=== PATIENT | male | born 1940 | race Caucasian/White ===

== ENCOUNTER 2018-04-18 23:32 | Emergency (ER) | payer MEDICARE ==
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
== END 2018-04-19 01:01 | disposition home or self-care (01) ==
LOC: ER 23:32
DX: S61.412A Laceration without foreign body of left hand, initial encounter (principal); W26.0XXA Contact with knife, initial encounter; Y92.009 Unspecified place in unspecified non-institutional (private) residence as the place of occurrence of the external cause; I10 Essential (primary) hypertension
CPT/HCPCS: 12001; 99283

== ENCOUNTER 2018-04-29 15:34 | Emergency (ER) | payer MEDICARE ==
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
== END 2018-04-29 16:12 | disposition home or self-care (01) ==
LOC: ER 15:34
DX: Z48.02 Encounter for removal of sutures (principal)

== ENCOUNTER 2019-05-08 13:53 | Inpatient (IN) | payer MEDICARE ==
[2019-05-08] MEDS ORDERED: FUROSEMIDE IV 40MG/4ML VIAL IVP ONE (14:25)
--- NOTE | 2019-05-08 14:26 | Emergency Department Record ---
History of Present Illness - General Chief complaint: Edema Stated complaint: SWELLING ON FEET Time Seen by Provider: 05/08/19 14:08 Source: Patient, Family Mode of Arrival: Ambulatory Limitations: No limitations - History of Present Illness Initial comments: The patient is here due to worsening leg swelling L>R and now redness and pain to the L lower leg for 2 days. The patient has had GAMBLE but no CP, GRIFFITH, cough, or fever. He does have a hx of significant peripheral edema but that is worse now. MD Complaint: Extremity swelling Onset/Timin -: Week(s) Location: Left, Right, Ankle, Foot, Lower Leg History of Same: Yes Improves with: Nothing Worsens with: Nothing Associated Symptoms: Denies other symptoms - Related Data Allergies Allergy/AdvReac Type Severity Reaction Status Date / Time codeine Allergy Intermediate ALTERED Verified 05/08/19 14:07 MENTAL STATUS Influenza Virus Vaccines AdvReac Severe Temp >104, Verified 05/08/19 14:07 vomiting, diarrhea Travel Screening - Travel/Exposure Within Last 30 Days Have you traveled within the last 30 days?: No Review of Systems Constitutional: Denies: Chills, Fever Eyes: Denies: Eye discharge ENT: Denies: Congestion Respiratory: Denies: Cough, Dyspnea Cardiovascular: Reports: Dyspnea on exertion. Denies: Chest pain Endocrine: Reports: Fatigue Gastrointestinal: Denies: Nausea Genitourinary: Denies: Dysuria Musculoskeletal: Denies: Arthralgia Skin: Denies: Bruising Past Medical History - SOCIAL HISTORY Smoking Status: Never smoker Alcohol Use: None Drug Use: None - RESPIRATORY Hx Respiratory Disorders: No - CARDIOVASCULAR Hx Cardio Disorders: Yes Hx Edema: Yes Hx Hypertension: Yes - NEURO Hx Neuro Disorders: No - GI Hx GI Disorders: No - Hx Genitourinary Disorders: Yes Hx Prostate Problems: Yes ([place]) - ENDOCRINE Hx Endocrine Disorders: Yes Hx Diabetes: Yes - MUSCULOSKELETAL Hx Musculoskeletal Disorders: Yes - PSYCH Hx Psych Problems: No - HEMATOLOGY/ONCOLOGY Hx Hematology/Oncology Disorders: Yes Hx Cancer: Yes Hx Chemotherapy: No Hx Radiation Therapy: No Family Medical History Any Significant Family History?: Yes Hx Cancer: Father, Mother Physical Exam - General General Appearance: Alert, Oriented x3, Cooperative, No acute distress - Head Head exam: Atraumatic, Normocephalic - Eye Eye exam: Normal appearance - ENT Throat exam: Normal inspection. negative: Tonsillar erythema, Tonsillar exudate - Neck Neck exam: Normal inspection, Full ROM. negative: Tenderness - Respiratory Respiratory exam: Normal lung sounds bilaterally. negative: Respiratory distress - Cardiovascular Cardiovascular Exam: Regular rate, Normal rhythm, Normal heart sounds - GI/Abdominal GI/Abdominal exam: Soft, Normal bowel sounds. negative: Tenderness - Extremities Extremities exam: Pedal edema (3+ L leg and 2+ R leg. There is erythema, tenderness and warmth to the L lower leg.). negative: Normal inspection - Neurological Neurological exam: Alert. negative: Motor sensory deficit Course Vital Signs 05/08/19 14:01 Temperature 98.2 F Pulse Rate 73 Respiratory 22 Rate Blood Pressure 164/73 Pulse Ox 93 L - Reevaluation(s) Reevaluation #1: The patient is doing well at this time and is resting comfortably. He has already urinated twice from the Lasix. I do feel he will need inpatient treatment for the L leg cellulitis and did recommend admission and the patient and family agreed. I also did discuss the case with Dr. Heath and he does accept the admission. 05/08/19 15:33 Medical Decision Making - Data Complexity MDM Data: Labs Ordered and/or Reviewed, X-Ray Ordered and/or Reviewed (CXR: Neg for overt CHF), EKG Ordered and/or Reviewed - Lab Data Result diagrams: 05/08/19 14:25 05/08/19 14:25 - EKG Data -: EKG Interpreted by Me EKG: No Acute Changes, Normal EKG Disposition Disposition: Admit Clinical Impression: Cellulitis Qualifiers: Site of cellulitis: unspecified site Qualified Code(s): L03.90 - Cellulitis, unspecified Disposition: Still a Patient at [facility] Decision to Admit: Admit from ER Decision to Admit Date: 05/08/19 Decision to Admit Time: 15:35 Accepting Physician: Kumar Time Discussed w/Accepting Physician: 15:35 Condition: (2) Stable Forms: Patient Portal Access Time of Disposition: 15:35 Quality - Quality Measures Quality Measures: N/A - Blood Pressure Screening View Details: Yes Does Patient Have Any of the Following: No Blood Pressure Classification: Hypertensive Reading Systolic Measurement: 164 Diastolic Measurement: 73 Screening for High Blood Pressure: < First Hypertensive BP, F/U Documented > [G8950] First Hypertensive Follow-up Interventions: Referral to alternative/primary care provider.
[2019-05-08 14:40] LABS: HEMATOCRIT 36.3 % (42.0-52.0); HEMOGLOBIN 11.5 gm/dl (14.0-18.0); MEAN CELL VOLUME 102.8 fl (81-97); MEAN CORPUSCULAR HEMOGLOBIN 32.5 pg (27-33); MEAN CORPUSCULAR HGB CONC 31.7 g/dl (32-36); MEAN PLATELET VOLUME 8.8 fl (7.4-10.4); PLATELET COUNT 175 K/uL (130-400); RED BLOOD COUNT 3.53 M/uL (4.40-5.70); RED CELL DISTRIBUTION WIDTH 13.3 % (11.5-14.5); WHITE BLOOD COUNT W/O DIFF 13.6 K/uL (4.2-12.2)
[2019-05-08 14:49] LABS: BLOOD UREA NITROGEN 24 mg/dL (8-23); CREATININE 1.6 mg/dL (0.7-1.2); EST GLOMERULAR FILTRATION RATE 45 mL/min
[2019-05-08 14:50] LABS: TOTAL PROTEIN 7.6 g/dL (6.6-8.7)
[2019-05-08 14:51] LABS: GLUCOSE,RANDOM 118 mg/dL (74-109); INR 1.3; PARTIAL THROMBOPLASTIN TIME 27.1 SECONDS (24.5-39.1); PLATELET ESTIMATE NORMAL (NORMAL); PROTHROMBIN TIME (PATIENT) 12.8 SECONDS (9.5-12.1)
[2019-05-08 14:54] LABS: ALB/GLOB RATIO 0.9 (1.1-1.8); ALBUMIN 3.7 g/dL (4.0-5.0); ALKALINE PHOSPHATASE 41 U/L (40-129); ALT/SGPT 15 U/L (<41); AST/SGOT 23 U/L (10.0-50.0)
[2019-05-08 14:55] LABS: C-REACTIVE PROTEIN 14.56 mg/dL (<0.5)
[2019-05-08] MEDS ORDERED: CEFTRIAXONE 1GM/50ML BAG 1 GM/50 ML BAG IVPB ONE (15:05)
--- NOTE | 2019-05-08 15:10 | RADIOLOGY REPORT ---
EXAMINATION: Two View Chest Radiographs EXAM DATE: 05/08/2019 2:56 PM TECHNIQUE: Frontal and lateral views INDICATION: NERI COMPARISON: Report for study dated August 02, 2017 for which the images are not available in PACS ENCOUNTER: Not applicable FINDINGS: Cardiac silhouette and upper mediastinal regions at the upper limits of normal. Motion and breathing artifact limits the lateral image. There is some atelectasis at the left lung base. No pneumothorax o r large pleural effusion. Multiple healed posterior right rib fractures. IMPRESSION: Atelectasis at the left lung base. Dictated by: Jake Wolf MD on 05/08/2019 3:07 PM. .
--- NOTE | 2019-05-08 15:52 | History & Physical ---
History of Present Illness - Date of Service Date of Service for History & Physical: 05/08/19 - History of Present Illness Admitting Diagnosis: Cellulitis, lower ext edema History of Present Illness: Mr. Márquez is a pleasant 78 y/o male who presents with a 1-2 day history of increased swelling of both legs. The patient says that his left leg is more swollen than the right and that it is very warm. He denies injury to his legs and has not had any pain. He says that he was outside yesterday helping a friend and then began to notice increasing redness of his legs, particularly the left leg. He has not had any chest pain, shortness of breath, fever or chills. The patient has medical history of hypertension and diabetes II and most recently had an episode of bradycardia when seen by his PCP. He has no history of heart failure or coronary artery disease. The patient's ED course include; labs positive for elevated WBCS but other nicholson unremarkable. Chest xray without acute cardiopulmonary findings and EKG NSR. The patient is admitted for antibiotic therapy and diuresis. PCP: Helena Blanco NP Travel Screening - Travel/Exposure Within Last 30 Days Have you traveled within the last 30 days?: No Review of Systems Constitutional: Denies: Chills, Fever Eyes: Denies: Eye discharge ENT: Denies: Congestion Respiratory: Denies: Cough, Dyspnea Cardiovascular: Reports: Dyspnea on exertion. Denies: Chest pain Endocrine: Reports: Fatigue Gastrointestinal: Denies: Nausea Genitourinary: Denies: Dysuria Musculoskeletal: Denies: Arthralgia Skin: Denies: Bruising Past Medical History - SOCIAL HISTORY Smoking Status: Never smoker Alcohol Use: None Drug Use: None - RESPIRATORY Hx Respiratory Disorders: No - CARDIOVASCULAR Hx Cardio Disorders: Yes Hx Edema: Yes Hx Hypertension: Yes - NEURO Hx Neuro Disorders: No - GI Hx GI Disorders: No - Hx Genitourinary Disorders: Yes Hx Prostate Problems: Yes ([place]) - ENDOCRINE Hx Endocrine Disorders: Yes Hx Diabetes: Yes - MUSCULOSKELETAL Hx Musculoskeletal Disorders: Yes - PSYCH Hx Psych Problems: No - HEMATOLOGY/ONCOLOGY Hx Hematology/Oncology Disorders: Yes Hx Cancer: Yes Hx Chemotherapy: No Hx Radiation Therapy: No Family Medical History Any Significant Family History?: Yes Hx Cancer: Father, Mother H&P Meds/Allergies - Allergies Allergies: Allergies Allergy/AdvReac Type Severity Reaction Status Date / Time codeine Allergy Intermediate ALTERED Verified 05/08/19 14:07 MENTAL STATUS Influenza Virus Vaccines AdvReac Severe Temp >104, Verified 05/08/19 14:07 vomiting, diarrhea Physical Exam - Vital Signs Vital Signs: Vital Signs - Last 24 Hrs Temp Pulse Pulse Resp BP BP Pulse Ox 05/08/19 15:18 67 22 127/70 92 L 05/08/19 14:01 98.2 F 73 22 164/73 93 L - General General Appearance: Alert, Oriented x3, Cooperative, No acute distress Limitations: No limitations - Head Head exam: Atraumatic, Normocephalic - Eye Eye exam: Normal appearance - ENT Throat exam: Normal inspection. negative: Tonsillar erythema, Tonsillar exudate - Neck Neck exam: Normal inspection, Full ROM. negative: Tenderness - Respiratory Respiratory exam: Normal lung sounds bilaterally. negative: Respiratory distress - Cardiovascular Cardiovascular Exam: Regular rate, Normal rhythm, Normal heart sounds - GI/Abdominal GI/Abdominal exam: Soft, Normal bowel sounds. negative: Tenderness - Extremities Extremities exam: Pedal edema (3+ L leg and 2+ R leg. There is erythema, tenderness and warmth to the L lower leg.). negative: Normal inspection - Neurological Neurological exam: Alert. negative: Motor sensory deficit Results - Labs Result Diagrams: 05/08/19 14:25 05/08/19 14:25 Labs Last 24 Hours: Laboratory Results - last 24 hr 05/08/19 05/08/19 05/08/19 14:25 14:25 14:25 WBC 13.6 H RBC 3.53 L Hgb 11.5 L Hct 36.3 L MCV 102.8 H MCH 32.5 MCHC 31.7 L RDW 13.3 Plt Count 175 MPV 8.8 Neutrophils % 78.0 Band Neutrophils % 5.0 Eosinophils % Not Reportable Basophils % Not Reportable Absolute Neutrophils 12.00 Lymphocytes 10.0 L Monocytes 7.0 Platelet Estimate Normal RBC Morphology Normal PT 12.8 H INR 1.3 APTT 27.1 Sodium 135 L Potassium 3.9 Chloride 97 L Carbon Dioxide 26.0 Anion Gap 12.0 BUN 24 H Creatinine 1.6 H Estimated GFR 45 Random Glucose 118 H Calcium 8.9 Total Bilirubin 0.40 AST 23 ALT 15 Alkaline Phosphatase 41 Troponin T < 0.010 C-Reactive Protein 14.56 H NT-Pro-B Natriuret Pep 911.80 H Total Protein 7.6 Albumin 3.7 L Globulin 3.9 Albumin/Globulin Ratio 0.9 L VTE H&P Assessment - Risk for VTE Risk for VTE: Yes Risk Level: High Risk Assessment Date: 05/08/19 Risk Assessment Time: 20:38 VTE Orders Placed or Will Be Placed: Yes Plan - Inpatient Certification Inpatient Certification: Cellulitis of lower ext, lower ext edema 05/08/19 20:53 - Detailed Diagnosis and Plan (1) Cellulitis Current Visit: Yes Status: Acute Qualifiers: Site of cellulitis: unspecified site Qualified Code(s): L03.90 - Cellulitis, unspecified Base Code: L03.90 - CELLULITIS, UNSPECIFIED Comment: 05/08/18: - Left lower ext warmth, erythema, non-tender. - WBCS 13K, CRP 14 Doppler negative for DVT - Rocephin 1gm Q24H ordered. If no improvement change to Doxycycline IVP. - Check CBC w/ diff in the morning. ; (2) Lower leg edema Current Visit: Yes Status: Acute Base Code: R60.0 - LOCALIZED EDEMA Comment: 05/08/19: - Bilateral lower ext edema R>L w/o pitting. - Venous cuplex negative for DVT. BNP 911 - CXR negative for fluid overload, atelectasis of left lower lung. - Lasix 40mg IVP daily, elevation of legs while in bed. (3) HTN (hypertension) Current Visit: Yes Status: Acute Base Code: I10 - ESSENTIAL (PRIMARY) HYPERTENSION Comment: 05/08/19: - On Candesartan/HCTZ at home. - Will start Valsartan and HCTZ PO daily while in hospital. (4) Diabetes mellitus, type II Current Visit: Yes Status: Acute Base Code: E11.9 - TYPE 2 DIABETES MELLITUS WITHOUT COMPLICATIONS Comment: 05/08/19: - Resume Metformin 500mg BID - ADA adet ordered. - Accuchecks Q12H. (5) Mild renal insufficiency Current Visit: Yes Status: Acute Base Code: N28.9 - DISORDER OF KIDNEY AND URETER, UNSPECIFIED Comment: 05/08/19: - Bun/Cr 24/1.6, GFR 45 - Fluid challenge with 0.9% Nacl 1 liter @ 100mL/hr. - Check BMP with morning labs. (6) DVT prophylaxis Current Visit: Yes Status: Acute Base Code: Z29.9 - ENCOUNTER FOR PROPHYLACTIC MEASURES, UNSPECIFIED Comment: 05/08/19: - Lovenox 40mg sq qd. - Encourage ambulation. (7) Full code status Current Visit: Yes Status: Acute Base Code: Z78.9 - OTHER SPECIFIED HEALTH STATUS Comment: 05/08/19: - The patient is full code status.
[2019-05-08] MEDS ORDERED: LORATADINE 10 MG TABLET PO SCH (16:51)
[2019-05-08] MEDS ORDERED: ACETAMINOPHEN 325 MG TAB PO PRN (16:51)
[2019-05-08] MEDS ORDERED: ATORVASTATIN 20 MG TABLET PO SCH (16:51)
--- NOTE | 2019-05-08 17:11 | ULTRASOUND REPORT ---
EXAMINATION: Left Lower Extremity Ultrasound, Venous Duplex Doppler EXAM DATE: 05/08/2019 4:53 PM TECHNIQUE: Color Doppler, spectral Doppler, and oliva scale evaluation of the left lower extremity fro m the common femoral vein to the popliteal vein. Evaluation of the deep venous system of the lower e xtremity was performed. INDICATION: leg swelling and pain PROCEDURE: Duplex scan of extremity veins including responses to compression and other maneuvers; un ilateral study FINDINGS: The deep venous system of the left leg appears normal, with normal flow and compressibilit y. No filling defects are seen. IMPRESSION: 1. Negative for DVT. Dictated by: Gerard Archuleta MD on 05/08/2019 5:09 PM. .
[2019-05-08] MEDS ORDERED: 0.9 % SODIUM CHLORIDE 1,000 ML BAG IV ONE (20:47)
[2019-05-08] MEDS ORDERED: Non-Formulary MISC (Blood Sugar Diagnostic [Test Strips] 1 EACH) MC SCH (22:00)
[2019-05-08] MEDS ORDERED: ALCOHOL ANTISEPTIC PADS TP SCH (22:00)
[2019-05-08] MEDS: ENOXAPARIN 40 MG/0.4 ML SYR SC SCH (22:16)
[2019-05-08] MEDS: METFORMIN 500 MG TABLET PO SCH (22:17)
[2019-05-09] MEDS: CEFTRIAXONE 1GM/50ML BAG 1 GM/50 ML BAG IVPB SCH ×2 (04:00→15:16)
[2019-05-09 06:34] LABS: ABSOLUTE NEUTROPHIL COUNT 10.76; HEMOGLOBIN 11.4 gm/dl (14.0-18.0); MEAN CELL VOLUME 101.7 fl (81-97); MEAN CORPUSCULAR HEMOGLOBIN 32.2 pg (27-33); MEAN CORPUSCULAR HGB CONC 31.7 g/dl (32-36); MEAN PLATELET VOLUME 8.8 fl (7.4-10.4); PLATELET COUNT 178 K/uL (130-400); RED BLOOD COUNT 3.54 M/uL (4.40-5.70); RED CELL DISTRIBUTION WIDTH 13.3 % (11.5-14.5); WHITE BLOOD COUNT W/O DIFF 13.2 K/uL (4.2-12.2)
[2019-05-09 07:04] LABS: CREATININE 1.7 mg/dL (0.7-1.2)
--- NOTE | 2019-05-09 09:08 | Physician Progress Note ---
Subjective - Date Date of Physician Progress Note: 05/09/19 - Subjective Subjective Comment: The patient is awake, alert and oriented. He denies pain or discomfort of the lower extremities but says the left leg feels a bit more sore than it was yesterday. Objective - Vital Signs Vital Signs: Vital Signs - Last 24 Hrs Temp Pulse Pulse Resp BP BP Pulse Ox 05/09/19 07:20 98.8 F 79 16 136/59 94 L 05/08/19 21:00 69 20 05/08/19 18:51 99.8 F H 69 20 117/54 100 05/08/19 16:50 68 16 05/08/19 16:42 68 16 164/44 92 L 05/08/19 16:30 63 16 164/75 05/08/19 15:18 67 22 127/70 92 L 05/08/19 14:01 98.2 F 73 22 164/73 93 L - General General Appearance: Alert, Oriented x3, Cooperative, No acute distress Limitations: No limitations - Head Head exam: Atraumatic, Normocephalic - Eye Eye exam: Normal appearance - ENT Throat exam: Normal inspection. negative: Tonsillar erythema, Tonsillar exudate - Neck Neck exam: Normal inspection, Full ROM. negative: Tenderness - Respiratory Respiratory exam: Normal lung sounds bilaterally. negative: Respiratory distress - Cardiovascular Cardiovascular Exam: Regular rate, Normal rhythm, Normal heart sounds, Systolic murmur - GI/Abdominal GI/Abdominal exam: Soft, Normal bowel sounds. negative: Tenderness - Extremities Extremities exam: Pedal edema (3+ L leg and 2+ R leg. There is erythema, tenderness and warmth to the L lower leg.). negative: Normal inspection - Neurological Neurological exam: Alert. negative: Motor sensory deficit - Skin Skin exam: Erythema (bilateral LE ), Warm (bilatral LE ) Distribution of rash: RLE, LLE Description of rash: Erythematous, Swelling. negative: Tenderness Assessment and Plan - Assessment and Plan (1) Cellulitis Current Visit: Yes Status: Acute Qualifiers: Site of cellulitis: unspecified site Qualified Code(s): L03.90 - Cellulitis, unspecified Base Code: L03.90 - CELLULITIS, UNSPECIFIED Comment: 05/09/18: - Left lower ext warmth, erythema, non-tender. Unchanged rash since seen yesterday. - WBCS 13K-->13.2K, CRP 14 Doppler negative for DVT - Rocephin 1gm Q24H ordered. If no improvement change Bactrim DS. (2) Lower leg edema Current Visit: Yes Status: Acute Base Code: R60.0 - LOCALIZED EDEMA Comment: 05/09/19: - Bilateral lower ext edema R>L w/o pitting. - Venous cuplex negative for DVT. BNP 911 - 2D echo with preserved EF and diastolic dysfunction normal. - CXR negative for fluid overload, atelectasis of left lower lung. - Lasix 40mg IVP daily, elevation of legs while in bed. (3) HTN (hypertension) Current Visit: Yes Status: Acute Base Code: I10 - ESSENTIAL (PRIMARY) HYPERTENSION Comment: 05/09/19: - On Candesartan/HCTZ at home. - Will start Valsartan and HCTZ PO daily while in hospital. (4) Diabetes mellitus, type II Current Visit: Yes Status: Acute Base Code: E11.9 - TYPE 2 DIABETES MELLITUS WITHOUT COMPLICATIONS Comment: 05/09/19: - Resume Metformin 500mg BID - ADA adet ordered. - Accuchecks Q12H. (5) Mild renal insufficiency Current Visit: Yes Status: Acute Base Code: N28.9 - DISORDER OF KIDNEY AND URETER, UNSPECIFIED Comment: 05/09/19: - Bun/Cr 24/1.6, GFR 45 --> Bun/Cr 26/1.7, GFR 42 - Fluid challenge with 0.9% Nacl 1 liter @ 100mL/hr. - Check BMP with morning labs. - Avoid nephrotoxins. (6) DVT prophylaxis Current Visit: Yes Status: Acute Base Code: Z29.9 - ENCOUNTER FOR PROPHYLACTIC MEASURES, UNSPECIFIED Comment: 05/09/19: - Lovenox 40mg sq qd. - Encourage ambulation. (7) Full code status Current Visit: Yes Status: Acute Base Code: Z78.9 - OTHER SPECIFIED HEALTH STATUS Comment: 05/09/19: - The patient is full code status. Results - Labs Result Diagrams: 05/09/19 06:09 05/09/19 06:09 Labs Last 24 Hours: Laboratory Results - last 24 hr 05/08/19 05/08/19 05/08/19 14:25 14:25 14:25 WBC 13.6 H RBC 3.53 L Hgb 11.5 L Hct 36.3 L MCV 102.8 H MCH 32.5 MCHC 31.7 L RDW 13.3 Plt Count 175 MPV 8.8 Neutrophils % 78.0 Band Neutrophils % 5.0 Eosinophils % Not Reportable Basophils % Not Reportable Absolute Neutrophils 12.00 Lymphocytes 10.0 L Monocytes 7.0 Differential Comment Platelet Estimate Normal RBC Morphology Normal Eosinophil Count PT 12.8 H INR 1.3 APTT 27.1 Sodium 135 L Potassium 3.9 Chloride 97 L Carbon Dioxide 26.0 Anion Gap 12.0 BUN 24 H Creatinine 1.6 H Estimated GFR 45 Random Glucose 118 H Calcium 8.9 Total Bilirubin 0.40 AST 23 ALT 15 Alkaline Phosphatase 41 Troponin T < 0.010 C-Reactive Protein 14.56 H NT-Pro-B Natriuret Pep 911.80 H Total Protein 7.6 Albumin 3.7 L Globulin 3.9 Albumin/Globulin Ratio 0.9 L 05/09/19 05/09/19 06:09 06:09 WBC 13.2 H RBC 3.54 L Hgb 11.4 L Hct 36.0 L MCV 101.7 H MCH 32.2 MCHC 31.7 L RDW 13.3 Plt Count 178 MPV 8.8 Neutrophils % 77.0 Band Neutrophils % 2.0 Eosinophils % Not Reportable Basophils % Not Reportable Absolute Neutrophils 10.76 Lymphocytes 14.0 L Monocytes 6.0 Differential Comment Platelet Estimate RBC Morphology Eosinophil Count 1.0 PT INR APTT Sodium 136 Potassium 3.4 Chloride 97 L Carbon Dioxide 25.0 Anion Gap 14.0 BUN 26 H Creatinine 1.7 H Estimated GFR 42 Random Glucose 129 H Calcium 8.7 L Total Bilirubin AST ALT Alkaline Phosphatase Troponin T C-Reactive Protein NT-Pro-B Natriuret Pep Total Protein Albumin Globulin Albumin/Globulin Ratio DVT/PE Assessment - Risk for VTE Risk for VTE: No Risk Level: High Risk Assessment Date: 05/08/19 Risk Assessment Time: 20:38 VTE Orders Placed or Will Be Placed: Yes - Active Medicaitons Current Medications: Current Medications Acetaminophen (Tylenol 325mg) 650 mg PO Q6H PRN PRN Reason: PAIN - MILD(1-4)/FEVER Atorvastatin Calcium (Lipitor) 20 mg PO DAILY [facility] Enoxaparin Sodium (Lovenox) 40 mg SC DAILY [facility] Last Admin: 05/08/19 22:16 Dose: 40 mg Documented by: Furosemide (Lasix Iv) 40 mg IVP DAILY [facility] Hydrochlorothiazide (Hctz 12.5mg) 12.5 mg PO DAILY [facility] CEFTRIAXONE 1GM/50ML BAG (Ceftriaxone 1 Gm-D5w Bag) 1 gm in 50 mls @ 100 mls/hr IVPB Q12H [facility] Last Infusion: 05/09/19 05:55 Dose: Infused Documented by: Loratadine (Claritin) 10 mg PO DAILY [facility] Metformin HCl (Glucophage Ir) 500 mg PO BID [facility] Last Admin: 05/08/19 22:17 Dose: 500 mg Documented by: Valsartan (Diovan) 320 mg PO DAILY [facility] AMI Plan - Labs Result Diagrams: 05/09/19 06:09 05/09/19 06:09
[2019-05-09] MEDS ORDERED: FUROSEMIDE IV 40MG/4ML VIAL IVP SCH (10:00)
[2019-05-09] MEDS: ENOXAPARIN 40 MG/0.4 ML SYR SC SCH (10:45)
[2019-05-09] MEDS: LORATADINE 10 MG TABLET PO SCH (10:46)
[2019-05-09] MEDS: HYDROCHLOROTHIAZIDE 12.5 MG CAPSULE PO SCH (10:46)
[2019-05-09] MEDS: METFORMIN 500 MG TABLET PO SCH ×2 (10:47→21:19)
[2019-05-09] MEDS: ATORVASTATIN 20 MG TABLET PO SCH (10:47)
[2019-05-09] MEDS: VALSARTAN 80 MG TAB PO SCH (10:48)
[2019-05-09] MEDS ORDERED: ZINC OXIDE 28.35 GM TUBE TOP ONE (11:36)
[2019-05-10] MEDS: CEFTRIAXONE 1GM/50ML BAG 1 GM/50 ML BAG IVPB SCH ×2 (02:28→14:42)
[2019-05-10 06:39] LABS: ABSOLUTE NEUTROPHIL COUNT 6.77; BASO % 0.1 % (0-6); EOS % 2.3 % (0-6); GRAN % 73.1 % (47-80); HEMATOCRIT 34.6 % (42.0-52.0); HEMOGLOBIN 10.8 gm/dl (14.0-18.0); LYMPH % 15.7 % (16-45); MEAN CELL VOLUME 102.1 fl (81-97); MEAN CORPUSCULAR HGB CONC 31.2 g/dl (32-36); MEAN PLATELET VOLUME 8.7 fl (7.4-10.4); MONO % 8.8 % (0-9); PLATELET COUNT 170 K/uL (130-400); RED BLOOD COUNT 3.39 M/uL (4.40-5.70); RED CELL DISTRIBUTION WIDTH 13.2 % (11.5-14.5); WHITE BLOOD COUNT W/O DIFF 9.3 K/uL (4.2-12.2)
[2019-05-10 06:44] LABS: MEAN CORPUSCULAR HEMOGLOBIN 31.8 pg (27-33)
[2019-05-10 06:54] LABS: C-REACTIVE PROTEIN 13.54 mg/dL (<0.5); CREATININE 1.6 mg/dL (0.7-1.2)
[2019-05-10] MEDS ORDERED: POTASSIUM CHLORIDE 20 MEQ/15ML CUP PO ONE (07:04)
[2019-05-10] MEDS: VALSARTAN 80 MG TAB PO SCH (09:03)
[2019-05-10] MEDS: ENOXAPARIN 40 MG/0.4 ML SYR SC SCH (09:03)
[2019-05-10] MEDS: METFORMIN 500 MG TABLET PO SCH ×2 (09:04→21:40)
[2019-05-10] MEDS: HYDROCHLOROTHIAZIDE 12.5 MG CAPSULE PO SCH (09:05)
[2019-05-10] MEDS: ATORVASTATIN 20 MG TABLET PO SCH (09:05)
[2019-05-10] MEDS: LORATADINE 10 MG TABLET PO SCH (09:05)
[2019-05-10] MEDS: BUMETANIDE IV 0.25 MG/ML VIAL IVP SCH (09:06)
--- NOTE | 2019-05-10 14:58 | Physician Progress Note ---
Subjective - Date Date of Physician Progress Note: 05/10/19 - Subjective Subjective Comment: The patient is lying in bed and says that the bottom of his foot feels much better. He has no other concerns at this time. Objective - Vital Signs Vital Signs: Vital Signs - Last 24 Hrs Temp Pulse Resp BP Pulse Ox 05/10/19 14:00 98.6 F 72 17 140/56 93 L 05/10/19 07:44 98.0 F 63 17 104/42 95 05/10/19 06:26 98.5 F 65 16 115/47 96 05/10/19 02:39 97.9 F 66 16 124/55 97 05/09/19 21:00 66 18 05/09/19 20:00 97.6 F 66 18 128/53 94 L 05/09/19 15:34 98.2 F 94 H 17 101/76 93 L - General General Appearance: Alert, Oriented x3, Cooperative, No acute distress Limitations: No limitations - Head Head exam: Atraumatic, Normocephalic - Eye Eye exam: Normal appearance - ENT Throat exam: Normal inspection. negative: Tonsillar erythema, Tonsillar exudate - Neck Neck exam: Normal inspection, Full ROM. negative: Tenderness - Respiratory Respiratory exam: Normal lung sounds bilaterally. negative: Respiratory distress - Cardiovascular Cardiovascular Exam: Regular rate, Normal rhythm, Normal heart sounds, Systolic murmur Peripheral Pulses: 0: Dorsalis Pedis (R) (Too edematous to appreciate ), Dorsalis Pedis (L) (Too edematous to appreciate. ), 3+: Radial (R), Radial (L) - GI/Abdominal GI/Abdominal exam: Soft, Normal bowel sounds. negative: Tenderness - Extremities Extremities exam: Pedal edema (3+ L leg and 2+ R leg. The erythema, of the right leg has improved but thee is still warmth. ). negative: Normal inspection - Neurological Neurological exam: Alert. negative: Motor sensory deficit - Skin Skin exam: Erythema (bilateral LE ), Warm (bilatral LE ) Distribution of rash: RLE, LLE Description of rash: Erythematous, Swelling. negative: Tenderness Assessment and Plan - Assessment and Plan (1) Cellulitis Current Visit: Yes Status: Acute Qualifiers: Site of cellulitis: unspecified site Qualified Code(s): L03.90 - Cellulitis, unspecified Base Code: L03.90 - CELLULITIS, UNSPECIFIED Comment: 05/10/18: - Left lower ext warmth, erythema, non-tender. Improvement of both lower extremities, L>R. The rash and eryhthema has receded. Pitting edema is still +4 on the left leg, +2 on the right. - WBCS 13K-->13.2K-->, CRP 14 Doppler negative for DVT - Wound dressing on the plantar surface of the left foot. - Rocephin 1gm Q24H ordered. Will change to PO Bactrim for MRSA coverage at discharge. (2) Lower leg edema Current Visit: Yes Status: Acute Base Code: R60.0 - LOCALIZED EDEMA Comment: 05/10/19: - Bilateral lower ext edema R>L w/o pitting. - Venous cuplex negative for DVT. BNP 911 - 2D echo with preserved EF and diastolic dysfunction normal. - CXR negative for fluid overload, atelectasis of left lower lung. - D/C Lasix 40mg IVP daily, change to Bumex 1mg daily. Repeat BMP. Daily weights ordered. Elevation of legs while in bed. (3) HTN (hypertension) Current Visit: Yes Status: Acute Base Code: I10 - ESSENTIAL (PRIMARY) HYPERTENSION Comment: 05/10/19: - On Candesartan/HCTZ at home. - Will start Valsartan and HCTZ PO daily while in hospital. (4) Diabetes mellitus, type II Current Visit: Yes Status: Acute Base Code: E11.9 - TYPE 2 DIABETES MELLITUS WITHOUT COMPLICATIONS Comment: 05/10/19: - Resume Metformin 500mg BID - ADA adet ordered. - Accuchecks Q12H. (5) Mild renal insufficiency Current Visit: Yes Status: Acute Base Code: N28.9 - DISORDER OF KIDNEY AND URETER, UNSPECIFIED Comment: 05/09/19: - Bun/Cr 24/1.6, GFR 45 --> Bun/Cr 26/1.7, GFR 42 --> 29/1.6 - Hold IV fluids 2/2 to edematous state. - Repeat BMP with morning labs. - Avoid nephrotoxins. (6) DVT prophylaxis Current Visit: Yes Status: Acute Base Code: Z29.9 - ENCOUNTER FOR PROPHYLACTIC MEASURES, UNSPECIFIED Comment: 05/10/19: - Lovenox 40mg sq qd. - Encourage ambulation. (7) Full code status Current Visit: Yes Status: Acute Base Code: Z78.9 - OTHER SPECIFIED HEALTH STATUS Comment: 05/10/19: - The patient is full code status. Results - Labs Result Diagrams: 05/10/19 06:15 05/10/19 06:15 Labs Last 24 Hours: Laboratory Results - last 24 hr 05/10/19 05/10/19 06:15 06:15 WBC 9.3 RBC 3.39 L Hgb 10.8 L Hct 34.6 L MCV 102.1 H MCH 31.8 MCHC 31.2 L RDW 13.2 Plt Count 170 MPV 8.7 Gran % 73.1 Lymphocytes % 15.7 L Monocytes % 8.8 Eosinophils % 2.3 Basophils % 0.1 Absolute Neutrophils 6.77 Sodium 134 L Potassium 3.3 L Chloride 96 L Carbon Dioxide 26.0 Anion Gap 12.0 BUN 29 H Creatinine 1.6 H Estimated GFR 45 Random Glucose 129 H Calcium 8.6 L C-Reactive Protein 13.54 H DVT/PE Assessment - Risk for VTE Risk for VTE: Yes Risk Level: High Risk Assessment Date: 05/08/19 Risk Assessment Time: 20:38 VTE Orders Placed or Will Be Placed: Yes - Active Medicaitons Current Medications: Current Medications Acetaminophen (Tylenol 325mg) 650 mg PO Q6H PRN PRN Reason: PAIN - MILD(1-4)/FEVER Last Admin: 05/09/19 10:46 Dose: 650 mg Documented by: Atorvastatin Calcium (Lipitor) 20 mg PO DAILY [facility] Last Admin: 05/10/19 09:05 Dose: 20 mg Documented by: Bumetanide (Bumex) 1 mg IVP DAILY [facility] Last Admin: 05/10/19 09:06 Dose: 1 mg Documented by: Enoxaparin Sodium (Lovenox) 40 mg SC DAILY [facility] Last Admin: 05/10/19 09:03 Dose: 40 mg Documented by: Hydrochlorothiazide (Hctz 12.5mg) 12.5 mg PO DAILY [facility] Last Admin: 05/10/19 09:05 Dose: 12.5 mg Documented by: CEFTRIAXONE 1GM/50ML BAG (Ceftriaxone 1 Gm-D5w Bag) 1 gm in 50 mls @ 100 mls/hr IVPB Q12H [facility] Last Admin: 05/10/19 14:42 Dose: 100 mls/hr Documented by: Loratadine (Claritin) 10 mg PO DAILY [facility] Last Admin: 05/10/19 09:05 Dose: 10 mg Documented by: Metformin HCl (Glucophage Ir) 500 mg PO BID [facility] Last Admin: 05/10/19 09:04 Dose: 500 mg Documented by: Valsartan (Diovan) 320 mg PO DAILY [facility] Last Admin: 05/10/19 09:03 Dose: 320 mg Documented by: AMI Plan - Labs Result Diagrams: 05/10/19 06:15 05/10/19 06:15
--- NOTE | 2019-05-10 15:04 | Physician Addendum ---
Addendum (Physician) The patient has hypokelemia with K 3.3. Repleted with 40 meq K IV. Repeat BMP ordered. 05/10/19 15:03
[2019-05-10] MEDS: DIPHENHYDRAMINE HCL 25 MG CAPSULE PO PRN (23:12)
[2019-05-11] MEDS: CEFTRIAXONE 1GM/50ML BAG 1 GM/50 ML BAG IVPB SCH ×2 (02:13→15:16)
[2019-05-11 06:20] LABS: ABSOLUTE NEUTROPHIL COUNT 5.79; BASO % 0.1 % (0-6); EOS % 3.8 % (0-6); GRAN % 67.1 % (47-80); HEMATOCRIT 34.5 % (42.0-52.0); LYMPH % 18.9 % (16-45); MEAN CELL VOLUME 101.5 fl (81-97); MEAN CORPUSCULAR HGB CONC 31.9 g/dl (32-36); MEAN PLATELET VOLUME 8.9 fl (7.4-10.4); MONO % 10.1 % (0-9); PLATELET COUNT 190 K/uL (130-400); RED CELL DISTRIBUTION WIDTH 13.1 % (11.5-14.5); WHITE BLOOD COUNT W/O DIFF 8.6 K/uL (4.2-12.2)
[2019-05-11 06:24] LABS: MEAN CORPUSCULAR HEMOGLOBIN 32.3 pg (27-33)
[2019-05-11 06:30] LABS: CREATININE 1.5 mg/dL (0.7-1.2)
[2019-05-11] MEDS: VALSARTAN 80 MG TAB PO SCH (09:15)
[2019-05-11] MEDS: ATORVASTATIN 20 MG TABLET PO SCH (09:16)
[2019-05-11] MEDS: ENOXAPARIN 40 MG/0.4 ML SYR SC SCH (09:16)
[2019-05-11] MEDS: HYDROCHLOROTHIAZIDE 12.5 MG CAPSULE PO SCH (09:16)
[2019-05-11] MEDS: LORATADINE 10 MG TABLET PO SCH (09:16)
[2019-05-11] MEDS: BUMETANIDE IV 0.25 MG/ML VIAL IVP SCH (09:17)
[2019-05-11] MEDS: METFORMIN 500 MG TABLET PO SCH ×2 (09:17→21:58)
--- NOTE | 2019-05-11 13:15 | Physician Progress Note ---
Subjective - Date Date of Physician Progress Note: 05/11/19 - Subjective Subjective Comment: Bilateral lower ext continuing to show improvement. Objective - Vital Signs Vital Signs: Vital Signs - Last 24 Hrs Temp Pulse Resp BP BP Pulse Ox 05/11/19 08:20 97.7 F 68 16 134/64 93 L 05/11/19 06:00 97.6 F 73 20 130/67 95 05/11/19 02:00 98.8 F 67 18 101/44 94 L 05/10/19 22:00 98.4 F 64 18 166/61 94 L 05/10/19 21:00 64 18 05/10/19 18:00 98.7 F 63 17 149/56 93 L 05/10/19 14:00 98.6 F 72 17 140/56 93 L - General General Appearance: Alert, Oriented x3, Cooperative, No acute distress Limitations: No limitations - Head Head exam: Atraumatic, Normocephalic - Eye Eye exam: Normal appearance - ENT Throat exam: Normal inspection. negative: Tonsillar erythema, Tonsillar exudate - Neck Neck exam: Normal inspection, Full ROM. negative: Tenderness - Respiratory Respiratory exam: Normal lung sounds bilaterally. negative: Respiratory distress - Cardiovascular Cardiovascular Exam: Regular rate, Normal rhythm, Normal heart sounds, Systolic murmur Peripheral Pulses: 0: Dorsalis Pedis (R) (Too edematous to appreciate ), Dorsalis Pedis (L) (Too edematous to appreciate. ), 3+: Radial (R), Radial (L) - GI/Abdominal GI/Abdominal exam: Soft, Normal bowel sounds. negative: Tenderness - Extremities Extremities exam: Pedal edema (3+ L leg and 2+ R leg. Significant improvement in lower ext swelling. Erythema resolving. ), Other. negative: Normal inspection, Calf tenderness - Neurological Neurological exam: Alert. negative: Motor sensory deficit - Skin Skin exam: Erythema (bilateral LE ), Warm (bilatral LE ), Other (Marked improvement in cellulitis of the left anterior LE. ) Distribution of rash: RLE, LLE Description of rash: Erythematous, Swelling. negative: Tenderness Assessment and Plan - Assessment and Plan (1) Cellulitis Current Visit: Yes Status: Acute Qualifiers: Site of cellulitis: unspecified site Qualified Code(s): L03.90 - Cellulitis, unspecified Base Code: L03.90 - CELLULITIS, UNSPECIFIED Comment: 05/11/18: - Left lower ext warmth, erythema, non-tender. Improvement of both lower extremities, L>R. The rash and eryhthema has receded. Pitting edema is still +4 on the left leg, +2 on the right. - WBCS 13K-->13.2K-->, --> 8.6CRP 14 Doppler negative for DVT - Wound dressing on the plantar surface of the left foot daily. Would appears to be much improved. - Rocephin 1gm Q24H ordered. Will change to PO Bactrim for MRSA coverage at discharge. (2) Lower leg edema Current Visit: Yes Status: Acute Base Code: R60.0 - LOCALIZED EDEMA Com ment: 05/11/19: - Bilateral lower ext edema R>L w/o pitting. - Venous cuplex negative for DVT. BNP 911 - 2D echo with preserved EF and diastolic dysfunction normal. - CXR negative for fluid overload, atelectasis of left lower lung. - Continue Bumex 1mg daily. Check BMP - Daily weights ordered. Elevation of legs while in bed. (3) HTN (hypertension) Current Visit: Yes Status: Acute Base Code: I10 - ESSENTIAL (PRIMARY) HYPERTENSION Comment: 05/11/19: - On Candesartan/HCTZ at home. - Will start Valsartan and HCTZ PO daily while in hospital. (4) Diabetes mellitus, type II Current Visit: Yes Status: Acute Base Code: E11.9 - TYPE 2 DIABETES MELLITUS WITHOUT COMPLICATIONS Comment: 05/11/19: - Resume Metformin 500mg BID - ADA adet ordered. - Accuchecks Q12H. (5) Mild renal insufficiency Current Visit: Yes Status: Acute Base Code: N28.9 - DISORDER OF KIDNEY AND URETER, UNSPECIFIED Comment: 05/11/19: - Bun/Cr 24/1.6, GFR 45 --> Bun/Cr 26/1.7, GFR 42 --> 29/1.6 --> 29/1.5 - Hold IV fluids 2/2 to edematous state. - Repeat BMP with morning labs. - Avoid nephrotoxins. (6) DVT prophylaxis Current Visit: Yes Status: Acute Base Code: Z29.9 - ENCOUNTER FOR PROPHYLACTIC MEASURES, UNSPECIFIED Comment: 05/11/19: - Lovenox 40mg sq qd. - Encourage ambulation. (7) Full code status Current Visit: Yes Status: Acute Base Code: Z78.9 - OTHER SPECIFIED HEALTH STATUS Comment: 05/11/19: - The patient is full code status. Results - Labs Result Diagrams: 05/11/19 06:00 05/11/19 06:00 Labs Last 24 Hours: Laboratory Results - last 24 hr 05/10/19 05/11/19 05/11/19 21:40 06:00 06:00 WBC 8.6 RBC 3.40 L Hgb 11.0 L Hct 34.5 L MCV 101.5 H MCH 32.3 MCHC 31.9 L RDW 13.1 Plt Count 190 MPV 8.9 Gran % 67.1 Lymphocytes % 18.9 Monocytes % 10.1 H Eosinophils % 3.8 Basophils % 0.1 Absolute Neutrophils 5.79 Sodium 136 Potassium 3.6 Chloride 97 L Carbon Dioxide 28.0 Anion Gap 11.0 BUN 29 H Creatinine 1.5 H Estimated GFR 48 POC Glucose 132 H Random Glucose 125 H Calcium 8.8 DVT/PE Assessment - Risk for VTE Risk for VTE: No Risk Level: High Risk Assessment Date: 05/08/19 Risk Assessment Time: 20:38 VTE Orders Placed or Will Be Placed: Yes - Active Medicaitons Current Medications: Current Medications Acetaminophen (Tylenol 325mg) 650 mg PO Q6H PRN PRN Reason: PAIN - MILD(1-4)/FEVER Last Admin: 05/09/19 10:46 Dose: 650 mg Documented by: Atorvastatin Calcium (Lipitor) 20 mg PO DAILY [facility] Last Admin: 05/11/19 09:16 Dose: 20 mg Documented by: Bumetanide (Bumex) 1 mg IVP DAILY [facility] Last Admin: 05/11/19 09:17 Dose: 1 mg Documented by: Diphenhydramine HCl (Benadryl Capsule) 25 mg PO Q6H PRN PRN Reason: INSOMNIA Last Admin: 05/10/19 23:12 Dose: 25 mg Documented by: Enoxaparin Sodium (Lovenox) 40 mg SC DAILY [facility] Last Admin: 05/11/19 09:16 Dose: 40 mg Documented by: Hydrochlorothiazide (Hctz 12.5mg) 12.5 mg PO DAILY [facility] Last Admin: 05/11/19 09:16 Dose: 12.5 mg Documented by: CEFTRIAXONE 1GM/50ML BAG (Ceftriaxone 1 Gm-D5w Bag) 1 gm in 50 mls @ 100 mls/hr IVPB Q12H [facility] Last Infusion: 05/11/19 03:20 Dose: Infused Documented by: Loratadine (Claritin) 10 mg PO DAILY [facility] Last Admin: 05/11/19 09:16 Dose: 10 mg Documented by: Metformin HCl (Glucophage Ir) 500 mg PO BID [facility] Last Admin: 05/11/19 09:17 Dose: 500 mg Documented by: Valsartan (Diovan) 320 mg PO DAILY [facility] Last Admin: 05/11/19 09:15 Dose: 320 mg Documented by: AMI Plan - Labs Result Diagrams: 05/11/19 06:00 05/11/19 06:00
[2019-05-11] MEDS ORDERED: SENNOSIDES/DOCUSATE SODIUM UD CAPSULE PO PRN (21:37)
[2019-05-11] MEDS: DIPHENHYDRAMINE HCL 25 MG CAPSULE PO PRN (21:59)
[2019-05-12] MEDS: CEFTRIAXONE 1GM/50ML BAG 1 GM/50 ML BAG IVPB SCH (02:50)
[2019-05-12 06:25] LABS: ABSOLUTE NEUTROPHIL COUNT 4.91; BASO % 0.3 % (0-6); EOS % 4.2 % (0-6); GRAN % 64.2 % (47-80); HEMATOCRIT 36.3 % (42.0-52.0); HEMOGLOBIN 11.5 gm/dl (14.0-18.0); LYMPH % 21.6 % (16-45); MEAN CORPUSCULAR HEMOGLOBIN 32.3 pg (27-33); MEAN CORPUSCULAR HGB CONC 31.7 g/dl (32-36); MEAN PLATELET VOLUME 8.7 fl (7.4-10.4); MONO % 9.7 % (0-9); PLATELET COUNT 213 K/uL (130-400); RED BLOOD COUNT 3.56 M/uL (4.40-5.70); WHITE BLOOD COUNT W/O DIFF 7.6 K/uL (4.2-12.2)
[2019-05-12 06:40] LABS: CREATININE 1.6 mg/dL (0.7-1.2)
[2019-05-12] MEDS: BUMETANIDE IV 0.25 MG/ML VIAL IVP SCH (09:34)
[2019-05-12] MEDS: ENOXAPARIN 40 MG/0.4 ML SYR SC SCH (09:34)
[2019-05-12] MEDS: HYDROCHLOROTHIAZIDE 12.5 MG CAPSULE PO SCH (09:35)
[2019-05-12] MEDS: METFORMIN 500 MG TABLET PO SCH (09:35)
[2019-05-12] MEDS: ATORVASTATIN 20 MG TABLET PO SCH (09:35)
[2019-05-12] MEDS: LORATADINE 10 MG TABLET PO SCH (09:35)
[2019-05-12] MEDS: VALSARTAN 80 MG TAB PO SCH (09:35)
--- NOTE | 2019-05-12 11:20 | Discharge Summary ---
Providers Discharge Summary Date: 05/12/19 Date of admission: 05/08/19 16:14 Attending physician: BRITTANI BROWER Primary care physician: Helena Ness N.P. Physical Exam - Vital Signs Vital Signs: Vital Signs - Last 24 Hrs Temp Pulse Resp BP BP BP Pulse Ox 05/12/19 09:00 20 05/12/19 08:01 98.2 F 127/61 05/12/19 07:33 98.2 F 65 21 127/61 91 L 05/12/19 04:00 98.3 F 69 20 148/57 94 L 05/11/19 20:00 98.9 F 73 20 154/53 92 L 05/11/19 12:00 97.7 F 65 16 143/49 92 L - General General Appearance: Alert, Oriented x3, Cooperative, No acute distress Limitations: No limitations - Head Head exam: Atraumatic, Normocephalic - Eye Eye exam: Normal appearance - ENT Throat exam: Normal inspection. negative: Tonsillar erythema, Tonsillar exudate - Neck Neck exam: Normal inspection, Full ROM. negative: Tenderness - Respiratory Respiratory exam: Normal lung sounds bilaterally. negative: Respiratory distress - Cardiovascular Cardiovascular Exam: Regular rate, Normal rhythm, Normal heart sounds, Systolic murmur Peripheral Pulses: 0: Dorsalis Pedis (R) (Too edematous to appreciate ), Dorsalis Pedis (L) (Too edematous to appreciate. ), 3+: Radial (R), Radial (L) - GI/Abdominal GI/Abdominal exam: Soft, Normal bowel sounds. negative: Tenderness - Extremities Extremities exam: Pedal edema (3+ L leg and 2+ R leg. Significant improvement in lower ext swelling. Erythema resolving. ), Other. negative: Normal inspection, Calf tenderness - Neurological Neurological exam: Alert. negative: Motor sensory deficit - Skin Skin exam: Erythema (bilateral LE ), Warm (bilatral LE ), Other (Marked improvement in cellulitis of the left anterior LE. ) Distribution of rash: RLE, LLE Description of rash: Erythematous, Swelling. negative: Tenderness Hospitalization - Hospitalization Admission Diagnosis: Cellulitis, lower ext edema - Problem List/Discharge Diagnosis (1) Cellulitis Current Visit: Yes Status: Acute Discharge Diagnosis: Site of cellulitis: unspecified site Qualified Code(s): L03.90 - Cellulit is, unspecified Base Code: L03.90 - CELLULITIS, UNSPECIFIED Comment: 05/12/18: - Left lower ext warmth, erythema, non-tender. Improvement of both lower extremities, L>R. The rash and eryhthema has receded. Pitting edema is still +4 on the left leg, +2 on the right. - WBCS 13K-->13.2K-->, --> 8.6 -->7.6 - Wound dressing on the plantar surface of the left foot daily. Would appears to be much improved. - Rocephin 1gm Q24H ordered. Will change to PO Bactrim for MRSA coverage at discharge. (2) Lower leg edema Current Visit: Yes Status: Acute Base Code: R60.0 - LOCALIZED EDEMA Comment: 05/12/19: - Bilateral lower ext edema R>L w/o pitting. - Venous cuplex negative for DVT. BNP 911 - 2D echo with preserved EF and diastolic dysfunction normal. - CXR negative for fluid overload, atelectasis of left lower lung. - Continue Bumex 1mg daily. Check BMP - Daily weights ordered. Elevation of legs while in bed. (3) HTN (hypertension) Current Visit: Yes Status: Acute Base Code: I10 - ESSENTIAL (PRIMARY) HYPERTENSION Comment: 05/12/19: - Stable. - On Candesartan/HCTZ at home. - Will start Valsartan and HCTZ PO daily while in hospital. (4) Diabetes mellitus, type II Current Visit: Yes Status: Acute Base Code: E11.9 - TYPE 2 DIABETES MELLITUS WITHOUT COMPLICATIONS Comment: 05/12/19: - Resume Metformin 500mg BID - ADA adet ordered. - Accuchecks Q12H. (5) Mild renal insufficiency Current Visit: Yes Status: Acute Base Code: N28.9 - DISORDER OF KIDNEY AND URETER, UNSPECIFIED Comment: 05/11/19: - Bun/Cr 24/1.6, GFR 45 --> Bun/Cr 26/1.7, GFR 42 --> 29/1.6 --> 29/1.5 - Hold IV fluids 2/2 to edematous state. - Repeat BMP with morning labs. - Avoid nephrotoxins. (6) DVT prophylaxis Current Visit: Yes Status: Acute Base Code: Z29.9 - ENCOUNTER FOR PROPHYLACTIC MEASURES, UNSPECIFIED Comment: 05/12/19: - Lovenox 40mg sq qd. - Encourage ambulation. (7) Full code status Current Visit: Yes Status: Acute Base Code: Z78.9 - OTHER SPECIFIED HEALTH STATUS Comment: 05/12/19: - The patient is full code status. - Hospitalization Course Disposition: Home, Self-Care Hospital Course: Mr. Márquez is a pleasant 78 y/o male who presents with a 1-2 day history of increased swelling of both legs. The patient says that his left leg is more swollen than the right and that it is very warm. He denies injury to his legs and has not had any pain. He says that he was outside yesterday helping a friend and then began to notice increasing redness of his legs, particularly the left leg. He has not had any chest pain, shortness of breath, fever or chills. The patient has medical history of hypertension and diabetes II and most recently had an episode of bradycardia when seen by his PCP. He has no history of heart failure or coronary artery disease. The patient's ED course include; labs positive for elevated WBCS but other nicholson unremarkable. Chest xray without acute cardiopulmonary findings and EKG NSR. The patient is admitted for antibiotic therapy and diuresis. Course 05/08 - 05/12: There was minimal response within the first 12 hours to Rocephin IV. Within 24 hours there was signs that the patient had a response to therapy and IV Rocephin was continued. The patient's Lasix was discontinued and Bumex 1mg IV daily was started which resulted in a marked reduction in lower extremity edema. The left plantar wound was dressed daily and too began showing improvement with no indication of infection. Kidney function during the admission remained stable, although there is indication of chronic kidney injury. On examination today, the patient is alert and oriented does not describe any pain and the erythematous rash on the left leg has receded significantly. PCP: Helena Ness NP Procedures: Imaging and X-Rays 05/08/19 14:25 CHEST 2 VIEWS [RAD] Stat 05/08/19 15:56 VENOUS DOPPLER LOWER EXT LT [US] Stat Cardiology Procedures 05/08/19 14:25 EKG NOW 05/09/19 08:57 Echo W/CF & Cardiac Doppler NOW Abnormal Labs: Abnormal Lab Results 05/08/19 05/08/19 05/08/19 Range/Units 14:25 14:25 14:25 WBC 13.6 H (4.2-12.2) K/uL RBC 3.53 L (4.40-5.70) M/uL Hgb 11.5 L (14.0-18.0) gm/dl Hct 36.3 L (42.0-52.0) % MCV 102.8 H (81-97) fl MCHC 31.7 L (32-36) g/dl Lymphocytes % (16-45) % Monocytes % (0-9) % Lymphocytes 10.0 L (16-45) % PT 12.8 H (9.5-12.1) SECONDS Sodium 135 L (136-145) mmol/L Potassium (3.4-4.5) mmol/L Chloride 97 L (98-107) mmol/L BUN 24 H (8-23) mg/dL Creatinine 1.6 H (0.7-1.2) mg/dL POC Glucose (70-110) mg/dL Random Glucose 118 H (74-109) mg/dL Calcium (8.8-10.2) mg/dL C-Reactive Protein 14.56 H (<0.5) mg/dL NT-Pro-B Natriuret Pep 911.80 H (<450) pg/mL Albumin 3.7 L (4.0-5.0) g/dL Albumin/Globulin Ratio 0.9 L (1.1-1.8) 05/09/19 05/09/19 05/10/19 Range/Units 06:09 06:09 06:15 WBC 13.2 H (4.2-12.2) K/uL RBC 3.54 L 3.39 L (4.40-5.70) M/uL Hgb 11.4 L 10.8 L (14.0-18.0) gm/dl Hct 36.0 L 34.6 L (42.0-52.0) % MCV 101.7 H 102.1 H (81-97) fl MCHC 31.7 L 31.2 L (32-36) g/dl Lymphocytes % 15.7 L (16-45) % Monocytes % (0-9) % Lymphocytes 14.0 L (16-45) % PT (9.5-12.1) SECONDS Sodium (136-145) mmol/L Potassium (3.4-4.5) mmol/L Chloride 97 L (98-107) mmol/L BUN 26 H (8-23) mg/dL Creatinine 1.7 H (0.7-1.2) mg/dL POC Glucose (70-110) mg/dL Random Glucose 129 H (74-109) mg/dL Calcium 8.7 L (8.8-10.2) mg/dL C-Reactive Protein (<0.5) mg/dL NT-Pro-B Natriuret Pep (<450) pg/mL Albumin (4.0-5.0) g/dL Albumin/Globulin Ratio (1.1-1.8) 05/10/19 05/10/19 05/11/19 Range/Units 06:15 21:40 06:00 WBC (4.2-12.2) K/uL RBC 3.40 L (4.40-5.70) M/uL Hgb 11.0 L (14.0-18.0) gm/dl Hct 34.5 L (42.0-52.0) % MCV 101.5 H (81-97) fl MCHC 31.9 L (32-36) g/dl Lymphocytes % (16-45) % Monocytes % 10.1 H (0-9) % Lymphocytes (16-45) % PT (9.5-12.1) SECONDS Sodium 134 L (136-145) mmol/L Potassium 3.3 L (3.4-4.5) mmol/L Chloride 96 L (98-107) mmol/L BUN 29 H (8-23) mg/dL Creatinine 1.6 H (0.7-1.2) mg/dL POC Glucose 132 H (70-110) mg/dL Random Glucose 129 H (74-109) mg/dL Calcium 8.6 L (8.8-10.2) mg/dL C-Reactive Protein 13.54 H (<0.5) mg/dL NT-Pro-B Natriuret Pep (<450) pg/mL Albumin (4.0-5.0) g/dL Albumin/Globulin Ratio (1.1-1.8) 05/11/19 05/11/19 05/12/19 Range/Units 06:00 21:30 06:20 WBC (4.2-12.2) K/uL RBC 3.56 L (4.40-5.70) M/uL Hgb 11.5 L (14.0-18.0) gm/dl Hct 36.3 L (42.0-52.0) % MCV 102.0 H (81-97) fl MCHC 31.7 L (32-36) g/dl Lymphocytes % (16-45) % Monocytes % 9.7 H (0-9) % Lymphocytes (16-45) % PT (9.5-12.1) SECONDS Sodium (136-145) mmol/L Potassium (3.4-4.5) mmol/L Chloride 97 L (98-107) mmol/L BUN 29 H (8-23) mg/dL Creatinine 1.5 H (0.7-1.2) mg/dL POC Glucose 124 H (70-110) mg/dL Random Glucose 125 H (74-109) mg/dL Calcium (8.8-10.2) mg/dL C-Reactive Protein (<0.5) mg/dL NT-Pro-B Natriuret Pep (<450) pg/mL Albumin (4.0-5.0) g/dL Albumin/Globulin Ratio (1.1-1.8) 05/12/19 Range/Units 06:20 WBC (4.2-12.2) K/uL RBC (4.40-5.70) M/uL Hgb (14.0-18.0) gm/dl Hct (42.0-52.0) % MCV (81-97) fl MCHC (32-36) g/dl Lymphocytes % (16-45) % Monocytes % (0-9) % Lymphocytes (16-45) % PT (9.5-12.1) SECONDS Sodium (136-145) mmol/L Potassium (3.4-4.5) mmol/L Chloride 97 L (98-107) mmol/L BUN 32 H (8-23) mg/dL Creatinine 1.6 H (0.7-1.2) mg/dL POC Glucose (70-110) mg/dL Random Glucose 122 H (74-109) mg/dL Calcium (8.8-10.2) mg/dL C-Reactive Protein (<0.5) mg/dL NT-Pro-B Natriuret Pep (<450) pg/mL Albumin (4.0-5.0) g/dL Albumin/Globulin Ratio (1.1-1.8) Condition at Discharge: (2) Stable Discharge Medications - Discharge Medications Prescriptions: Sulfamethoxazole/Trimethoprim [Bactrim Ds Tablet] 1 each PO Q12HR #20 tablet Bumetanide [Bumex] 1 mg PO DAILY #14 tablet Home Medications: Ambulatory Orders Bumetanide [Bumex] 1 mg PO DAILY #14 tablet 05/12/19 [Last Taken Unknown] Sulfamethoxazole/Trimethoprim [Bactrim Ds Tablet] 1 each PO Q12HR #20 tablet 05/12/19 [Last Taken Unknown] Discharge Plan - Discharge Instructions Activity at Discharge: Resume Usual Activities As Tolerated Diet at Discharge: Diabetic Diet Instructions: Cellulitis (DC) Additional Instructions: Appointment with Helena Ness at [facility] on 05/26/19 at 8:00. Wheel Filler (Camelia) will call you at home once you have been discharged. Please take these medications as prescribed: Bactrim DS #1 tab twice daily x 10 days. Bumex 1mg daily Have labs done before visit with PCP to check kidney function. Resume taking all other home medications like you have been doing before admission. Quality Measures - Quality Measures Quality Measures: Advance Directives, Documentation of Current Medications in Medical Record, Elder Maltreatment Screen and Follow-Up Plan, Screening for High Blood Pressure and F/U Documented - Current Medications Quality Measure: Measure #130: Documentation of Current Medications Documentation of Current Medications: <Current Medications Documented/Reviewed> [[id number]] - Blood Pressure Screening Quality Measure: Screening for High Blood Pressure and Follow-Up Documented Does Patient Have Any of the Following: Active Dx of HTN Blood Pressure Classification: Pre-Hypertensive BP Reading Systolic Measurement: 127 Diastolic Measurement: 61 Screening for High Blood Pressure: Patient Exclusion, Hx of HTN [G9744] - Advance Directives Quality Measure: Measure #47: Care Plan Advance Directives Established: No Advance Directives Information Provided To Patient: No Advance Directives on File: No Advance Care Planning: <Care Plan/Decision Maker Documented; Discussed & Documented> [[id number]] - Elder Abuse Suspicion Index Screening: Elder Abuse Suspicion Index Screening Rely on people for bathing, dressing, shopping, banking, etc: No Prevented from getting food, clothes, medication, etc: No Made to feel shamed or threatened by someone: No Forced to sign papers or use money against will: No Feel afraid, touched in ways not wanted or hurt physically: No Poor eye contact, withdrawn, malnourished, cuts or bruises: No Screening Result: Negative result EASI Reference Information: Yung FRANZ, Minoo C, Jasiel Mendez, Pearl Scott.Development and validation of a tool to assist physicians identification of elder abuse: The Elder Abuse Suspicion Index (EASI ). Journal of Elder Abuse and Neglect, 2008; 20 (3): 276-300. - Elder Maltreatment Screen Quality Measures: Elder Maltreatment Screen and Follow-Up Plan Elder Maltreatment Screen: <Negative, No Follow-Up Plan Required> [G8734]
== END 2019-05-12 12:02 | disposition home or self-care (01) | DRG 603 ==
LOC: ER 13:53 → MEDSURG 16:14
PROVIDERS: ADMIT Internal Medicine; ATTEND Internal Medicine
DX: L03.116 Cellulitis of left lower limb (principal); M79.89 Other specified soft tissue disorders; I10 Essential (primary) hypertension; Z85.46 Personal history of malignant neoplasm of prostate; E11.9 Type 2 diabetes mellitus without complications; Z79.84 Long term (current) use of oral hypoglycemic drugs; N28.9 Disorder of kidney and ureter, unspecified; E87.6 Hypokalemia
CPT/HCPCS: 85730; 85610; 86140; 80053; 84484; 85027; 83880; 71046; 93971; 93005; 93010; J0696; 36416; 80048; 82948; 85025; 96365; 96375; 99223; 99233; 99239; 99285; J1650; J1940; J3490